=== PATIENT | female | born 1945 | race Caucasian/White ===

== ENCOUNTER 2017-04-13 12:50 | Emergency (ER) | payer MEDICARE, OTHER ==
[~2017-04-13 12:50] MED LIST: FLUTPOW4 XX; Z.0.NO CURRENT MEDS
[2017-04-13 12:52] VITALS: BP 179/76; PULSE 85; RESP 14; TEMP 98.2; O2SAT 98
--- NOTE | 2017-04-13 13:21 | PD ---
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 This patient has had a problem for about 2 weeks. She feels like something is falling out of place in her pelvic region. Nothing extrudes outside of the body. She tried to get an appointment with her physician [facility] advised her to come to the emergency room. Patient symptoms are mild. PFSH Past Medical History Heart Rhythm Problems: No Cardiac Catheterization: Yes (2007) Cardiovascular Problems: No High Cholesterol: No Congestive Heart Failure: No Diabetes: No Diminished Hearing: Yes (states tinnitus) Respiratory: Yes (seasonal allergies) Tetanus Vaccination: > 5 Years Influenza Vaccination: Yes ?: Not Menopausal: Yes : 2 Para: 2 Past Surgical History Cholecystectomy: Yes Coronary Artery Bypass Graft: No Family History Family Myocardial Infarction: Yes (MOTHER) Social History Alcohol Use: Yes Tobacco Use: No Substance Use: No Allergies-Medications (Allergen,Severity, Reaction): Coded Allergies: No Known Allergies (Verified Adverse Reaction, Unknown, 04/13/17) Reported Meds & Prescriptions Reported Meds & Active Scripts Active No Active Prescriptions or Reported Medications Review of Systems General / Constitutional: No: Fever HENT: No: Headaches Cardiovascular: No: Chest Pain or Discomfort Respiratory: No: Cough Physical Exam Narrative GASTROINTESTINAL: Abdomen soft, non-tender, nondistended. Positive bowel sounds. No hepato-splenomegaly, or palpable masses. No guarding. SKIN: Focused skin assessment reveals no rash or ulcers. Skin is warm and dry. Palpation shows no induration or nodules. Pelvic: This patient has a bladder prolapse. Does not exit the introitus. No bleeding or discharge. The bladder itself is visible and looks to have pink healthy tissue Data Data Last Documented VS Vital Signs Date Time Temp Pulse Resp B/P (MAP) Pulse Ox O2 Delivery O2 Flow Rate FiO2 04/13/17 12:52 98.2 85 14 179/76 (110) 98 MDM Medical Decision Making Medical Screen Exam Complete: Yes Emergency Medical Condition: Yes Medical Record Reviewed: Yes Differential Diagnosis Bladder prolapse, uterine prolapse, rectocele Narrative Course I have reviewed the patient's electronic medical record. This patient has bladder prolapse. I push it back into position as best I could. There is no emergency to this now. It's been dropping for 2 weeks now. She should follow-up with either urology or RFID MANAGER to discuss options including surgery, pessary, etc. Diagnosis Primary Impression: Bladder prolapse, female, acquired Additional Instructions: Follow-up with urology or RFID MANAGER to discuss options for her bladder prolapse Med/Other Pt SpecificInfo: Other Scripts No Active Prescriptions or Reported Meds Disposition: 01 DISCHARGE HOME Condition: Stable Marcos Funk MD Apr 13, 2017 13:21
[2017-04-13 13:50] VITALS: BP 140/77; TEMP 97.8
== END 2017-04-13 13:52 | disposition home or self-care (01) ==
LOC: NEPD 12:50
DX: N81.10 Cystocele, unspecified (principal)
CPT/HCPCS: 99284

== ENCOUNTER 2018-04-16 10:44 | Inpatient (IN) ==
[2018-04-16] MEDS ORDERED: Sod Chloride 0.9% Inj 1,000 ML IV.SIG ONE ×2 (11:21→13:18)
--- NOTE | 2018-04-16 11:36 | ED ---
HPI General Chief complaint: Weakness Stated complaint: weakness/dizziness/Cold and flu complaint Time Seen by Provider: 04/16/18 11:11 Source: patient, family and RN notes reviewed Mode of arrival: ambulatory History of Present Illness HPI narrative: 73yF presenting with generalized weakness and fatigue. The patient reports 1 week of generalized weakness, chills, myalgias, decreased appetite/ nausea, and fatigue. Admits to non-productive cough but denies fever, chest pain, vomiting, abdominal pain, constipation or diarrhea, or dysuria. No known recent sick contacts or travel. Related Data Home Medications Medication Instructions Recorded Confirmed oxybutynin chloride 5 mg PO BID 04/16/18 04/16/18 Allergies Allergy/AdvReac Type Severity Reaction Status Date / Time No Known Allergies Allergy Verified 04/16/18 10:55 Review of Systems ROS: all other systems reviewed are negative Constitutional Denies fever(s) Eyes Denies blurry vision ENT Denies nasal congestion Cardiovascular Denies chest pain Respiratory Reports cough Gastrointestinal Reports nausea Genitourinary Denies dysuria Musculoskeletal Denies back pain Neurologic Denies confusion Psychiatric Denies confusion [facility] Medical History Medical History Overactive bladder (Acute) Surgical History Surgical History History of cholecystectomy (Acute) Social History Social History Substance History: No History of Abuse Second Hand Smoke Exposure: No Smoking Status: Former smoker Tobacco Type: Cigarettes How Often Do You Have a Drink Containing Alcohol: 2 to 3 times a week Recent Travel in [facility] within the Last 8 Weeks: No Recent Out of Country Travel within the Last 8 Weeks: No Immunization History Tetanus Immunization: Unsure Exam Const General: healthy appearing and no acute distress HENMT Face and sinus: normal facial exam Eyes General: appearance normal, both eyes and all related structures Resp Effort & Inspection: normal respiratory effort Auscultation: no rhonchi and no wheezes Cardio Rate: regular rate Rhythm: regular rhythm GI Other: Soft, non-tender in all quadrants, no guarding or rebound Skin General: no rashes or lesions noted Neuro General: alert, awake, oriented x3 and no focal motor deficits Extrem Other: No lower extremity edema Psych Affect: normal affect Course Initial Documented Vital Signs Temperature 100.6 F H 04/16/18 10:53 Pulse Rate 106 H 04/16/18 10:53 Respiratory Rate 18 04/16/18 10:53 Blood Pressure 141/65 H 04/16/18 10:53 Pulse Oximetry 94 L 04/16/18 10:53 Last Documented Vital Signs Temperature 99.2 F 04/16/18 13:15 Pulse Rate 99 H 04/16/18 10:55 Respiratory Rate 18 04/16/18 10:55 Blood Pressure 137/60 04/16/18 10:55 Pulse Oximetry 98 04/16/18 10:55 Medical Decision Making MDM Narrative Medical decision making narrative: Assessment: 73yF presenting with generalized weakness/ fatigue, cough, chills Plan: EKG Labs CXR UA Flu swab Addendum: Patient found to have RML/ RLL community-acquired pneumonia and SIRS. Her pulse ox is in the low 90s on room air. She requires IV antibiotics, aggressive pulmonary toilet, and re-evaluation at frequent intervals. She and her understand and agree with plan. Case discussed with Dr. Osman of [facility]. Medical Screen Exam Complete: Yes Emergency Medical Condition: Yes Differential Diagnosis Differential Diagnosis: Differential diagnosis includes, but is not limited to: influenza, pneumonia, UTI, electrolyte abnormality, thyroid disease, dehydration , low suspicion for ACS Lab Data Lab results reviewed: Yes I reviewed the patient's lab results. Result diagrams: 04/16/18 12:00 04/16/18 12:00 Lab Results 04/16/18 04/16/18 04/16/18 Range/Units 12:00 12:00 12:00 WBC 12.8 H (4.0-11.0) th/mm3 RBC 4.05 (4.00-5.30) mil/mm3 Hgb 11.4 L (11.6-15.3) gm/dL Hct 33.8 L (35.0-46.0) % MCV 83.4 (80.0-100.0) fL MCH 28.1 (27.0-34.0) pg MCHC 33.6 (32.0-36.0) % RDW 14.7 (11.6-17.2) % Plt Count 162 (150-450) th/mm3 MPV 9.0 (7.0-11.0) fL Neut % (Auto) 82.6 H (16.0-70.0) % Lymph % (Auto) 7.3 L (9.0-44.0) % [place] % (Auto) 9.6 H (0.0-8.0) % Eos % (Auto) 0.1 (0.0-4.0) % Baso % (Auto) 0.4 (0.0-2.0) % Neut # (Auto) 10.6 H (1.8-7.7) th/mm3 Lymph # (Auto) 0.9 L (1.0-4.8) th/mm3 [place]ee # (Auto) 1.2 H (0.0-0.9) th/mm3 Eos # (Auto) 0.0 (0.0-0.4) th/mm3 Baso # (Auto) 0.1 (0.0-0.2) th/mm3 WBC Differential . Differential Comment Auto diff final Sodium 131 L (136-145) meq/L Potassium 3.9 (3.5-5.1) meq/L Chloride 96 L (98-107) meq/L Carbon Dioxide 23.6 (21.0-32.0) meq/L Anion Gap 11 (5-15) meq/L BUN 10 (7-18) mg/dL Creatinine 0.72 (0.50-1.00) mg/dL Estimated GFR 80 L (>89) mL/min Random Glucose 111 H (74-106) mg/dL Calcium 8.3 L (8.5-10.1) mg/dL Magnesium 2.1 (1.5-2.5) mg/dL Total Bilirubin 0.6 (0.2-1.0) mg/dL AST 110 H (15-37) U/L ALT 99 H (10-53) U/L Alkaline Phosphatase 64 (45-117) U/L Troponin I Less than 0.02 L (0.02-0.05) ng/mL Total Protein 6.9 (6.4-8.2) g/dL Albumin 2.4 L (3.4-5.0) g/dL TSH 0.821 (0.358-3.740) uIU/mL Urine Color (Yellw/Straw) Urine Clarity (Clear) Urine pH (5.0-8.5) Ur Specific [place] (1.002-1.035) Urine Protein (Neg-Trace) mg/dL Urine Glucose (UA) (Negative) mg/dL Urine Ketones (Negative) mg/dL Urine Occult Blood (Negative) Urine Nitrate (Negative) Urine Bilirubin (Negative) Urine Urobilinogen (Less than 2) mg/dL Ur Leukocyte Esterase (Negative) Urine RBC (0-3) /hpf Urine WBC (0-5) /hpf Urine WBC Clumps (None) Ur Squamous Epith Cells (0-5) /hpf Urine Bacteria (None) /hpf Hyaline Casts (0-3) /lpf Granular Casts (None) /lpf WBC Casts (None) /lpf Micro UA Comment Ur Microscopic Review Urine Culture Comments 04/16/18 Range/Units 12:48 WBC (4.0-11.0) th/mm3 RBC (4.00-5.30) mil/mm3 Hgb (11.6-15.3) gm/dL Hct (35.0-46.0) % MCV (80.0-100.0) fL MCH (27.0-34.0) pg MCHC (32.0-36.0) % RDW (11.6-17.2) % Plt Count (150-450) th/mm3 MPV (7.0-11.0) fL Neut % (Auto) (16.0-70.0) % Lymph % (Auto) (9.0-44.0) % [place]ee % (Auto) (0.0-8.0) % Eos % (Auto) (0.0-4.0) % Baso % (Auto) (0.0-2.0) % Neut # (Auto) (1.8-7.7) th/mm3 Lymph # (Auto) (1.0-4.8) th/mm3 [place]ee # (Auto) (0.0-0.9) th/mm3 Eos # (Auto) (0.0-0.4) th/mm3 Baso # (Auto) (0.0-0.2) th/mm3 WBC Differential Differential Comment Sodium (136-145) meq/L Potassium (3.5-5.1) meq/L Chloride (98-107) meq/L Carbon Dioxide (21.0-32.0) meq/L Anion Gap (5-15) meq/L BUN (7-18) mg/dL Creatinine (0.50-1.00) mg/dL Estimated GFR (>89) mL/min Random Glucose (74-106) mg/dL Calcium (8.5-10.1) mg/dL Magnesium (1.5-2.5) mg/dL Total Bilirubin (0.2-1.0) mg/dL AST (15-37) U/L ALT (10-53) U/L Alkaline Phosphatase (45-117) U/L Troponin I (0.02-0.05) ng/mL Total Protein (6.4-8.2) g/dL Albumin (3.4-5.0) g/dL TSH (0.358-3.740) uIU/mL Urine Color Diane (Yellw/Straw) Urine Clarity Hazy H (Clear) Urine pH 5.0 (5.0-8.5) Ur Specific [place] 1.018 (1.002-1.035) Urine Protein 100 H (Neg-Trace) mg/dL Urine Glucose (UA) Negative (Negative) mg/dL Urine Ketones Negative (Negative) mg/dL Urine Occult Blood Negative (Negative) Urine Nitrate Negative (Negative) Urine Bilirubin Negative (Negative) Urine Urobilinogen 2.0 H (Less than 2) mg/dL Ur Leukocyte Esterase Negative (Negative) Urine RBC 2 (0-3) /hpf Urine WBC 5 (0-5) /hpf Urine WBC Clumps Rare H (None) Ur Squamous Epith Cells <1 (0-5) /hpf Urine Bacteria Rare H (None) /hpf Hyaline Casts 8 (0-3) /lpf Granular Casts 4 (None) /lpf WBC Casts 1 (None) /lpf Micro UA Comment Culture indicated Ur Microscopic Review Microscopic reviewed Urine Culture Comments Culture indicated Imaging Data Radiologist's impression: Chest X-Ray 04/16/18 11:21 CONCLUSION: Acute right lung airspace disease characteristic of pneumonitis. ECG Data Attestation: I personally reviewed and interpreted this ECG as follows: Interpretation: Rate: 85 BPM Rhythm: Sinus [place]: Left Intervals: Normal intervals, no blocks, QTc 395 ms Q waves: None T waves: Upright, no inversions ST segments: No elevations or depressions Impression: Non-specific EKG, no changes as compared to EKG from 07/18/2012. Discharge Plan Discharge Order Discharge Orders: ED Use Only Admit Order (Routine); Ordered 04/16/18 Ordered By: Duyen Phelps Physicians Team ED Provider: Duyen Phelps Primary Care Provider: Basil Villela Rxs /Orders / Referrals /Forms Prescriptions: No Action oxybutynin chloride 5 mg Tablet Extended Release 24hr 5 mg PO BID RF: 0 Discharge Interventions Interventions: Vital Signs Last Done: 04/16/18 13:15 Status ED Status: Admitted Patient
[2018-04-16] MEDS ORDERED: Acetaminophen 325 MG Tablet PO ONE (11:47)
--- NOTE | 2018-04-16 12:07 | XR ---
EXAM DATE: 04/16/2018 11:57 AM EST AGE/SEX: 73 years / Female INDICATIONS: . Cough. CLINICAL DATA: This is the patient's initial encounter. Patient reports that signs and symptoms have been present for 3 days and indicates a pain score of 0/10. MEDICAL/SURGICAL HISTORY: None. Cholecystectomy. COMPARISON: [facility] – [place], CHEST SINGLE AP, 07/18/2012. . FINDINGS: Significant airspace disease is identified in the right midlung and base. Lungs are hyperinflated. Heart and mediastinal structures are stable. CONCLUSION: Acute right lung airspace disease characteristic of pneumonitis. Electronically signed by: Marco Mckeon MD Board Certified Radiologist 04/16/2018 12:06 PM EST
[2018-04-16 12:20] LABS: Baso # (Auto) 0.1 th/mm3 (0.0-0.2); Baso % (Auto) 0.4 % (0.0-2.0); Eos % (Auto) 0.1 % (0.0-4.0); Hematocrit 33.8 % (35.0-46.0); Hemoglobin 11.4 gm/dL (11.6-15.3); Lymph # (Auto) 0.9 th/mm3 (1.0-4.8); Lymph % (Auto) 7.3 % (9.0-44.0); Mean Corpuscular HGB Conc 33.6 % (32.0-36.0); Mean Corpuscular Hemoglobin 28.1 pg (27.0-34.0); Mean Corpuscular Volume 83.4 fL (80.0-100.0); Mono # (Auto) 1.2 th/mm3 (0.0-0.9); Mono % (Auto) 9.6 % (0.0-8.0); Neut # (Auto) 10.6 th/mm3 (1.8-7.7); Neut % (Auto) 82.6 % (16.0-70.0); Platelet Count 162 th/mm3 (150-450); Red Blood Count 4.05 mil/mm3 (4.00-5.30); Red Cell Distribution Width 14.7 % (11.6-17.2); White Blood Count 12.8 th/mm3 (4.0-11.0)
[2018-04-16] MEDS ORDERED: Azithromycin Inj 500 MG in Sodium Chlor 0.9% Inj 250 ML IV.SIG ONE (12:32)
[2018-04-16 12:39] LABS: Alanine Aminotransferase 99 U/L (10-53)
[2018-04-16 12:43] LABS: Alkaline Phosphatase 64 U/L (45-117); Total Protein 6.9 g/dL (6.4-8.2)
[2018-04-16 12:47] LABS: Albumin 2.4 g/dL (3.4-5.0); Anion Gap 11 meq/L (5-15); Aspartate Aminotransferase 110 U/L (15-37); Blood Urea Nitrogen 10 mg/dL (7-18); Calcium 8.3 mg/dL (8.5-10.1); Carbon Dioxide 23.6 meq/L (21.0-32.0); Chloride 96 meq/L (98-107); Glomerular Filtration Rate 80 mL/min (>89); Glucose,Random 111 mg/dL (74-106); Magnesium 2.1 mg/dL (1.5-2.5); Sodium 131 meq/L (136-145)
[2018-04-16 12:54] LABS: Potassium 3.9 meq/L (3.5-5.1)
[2018-04-16 13:07] LABS: Bacteria,Urine Rare /hpf; Bilirubin,Urine Negative (Negative); Clarity,Urine Hazy (Clear); Color,Urine Amber (Yellw/Straw); Glucose,Urine (UA) Negative (Negative); Hyaline Casts,Urine 8 /lpf (0-3); Leukocyte Esterase,Urine Negative (Negative); Nitrite,Urine Negative (Negative); Specific Gravity,Urine 1.018 (1.002-1.035); Squamous Epithelial Cell,Urine <1 /hpf (0-5)
--- NOTE | 2018-04-16 15:30 | P.HPIM ---
History of Present Illness Primary Care Physician: Basil Villela MD History of Present Illness: Pt is 73 yo with overactive bladder who presented with increasing weakness, confusion, fever/chills and just starting with nonproductive cough. Her is at bedside. No sick family contacts. no sinus congestion or sore throat. Pt says for "years" she has had some difficulty swallowing but not any worse now. She completely denies any possibility of aspiration. She and are vague about tobacco use but she quit back in . She is getting ivf, rocephin and azithro her in ED. PMH overactive bladder. lap jannie FH: [place] SH quit tob in etoh 2-3x per week reported. Diagnosis (1) Community acquired pneumonia: Inpatient Certification Inpatient Certification: I certify that the inpatient services were ordered in accordance with Medicare regulations governing the order. This includes certification that hospital inpatient services are reasonable and necessary and in the case of services not specified as inpatient-only under 42 CFR 419.22(n), that they are appropriately provided as inpatient services in accordance to with the 2-midnight benchmark under 43 CFR 412.3(e) Medications and Allergies Allergies Allergy/AdvReac Type Severity Reaction Status Date / Time No Known Allergies Allergy Verified 04/16/18 10:55 Home Medications Medication Instructions Recorded Confirmed Type oxybutynin chloride 5 mg PO BID 04/16/18 04/16/18 History Active Medications: Active Medications Sodium Chloride (Ns Flush) 2 ml IV.FLUSH PRN PRN PRN Reason: FLUSH AFTER USING IV ACCESS Physical Exam Vital signs: Last Vital Signs Temp 99.2 F 04/16/18 13:15 Pulse 73 04/16/18 15:00 Resp 16 04/16/18 15:00 BP 112/53 L 04/16/18 15:00 Pulse Ox 96 04/16/18 15:00 Narrative: mild confusion but cooperative nad. no labored breathing heart reg lung crackles right base. no egophany no wheezing ext no edema Results Labs CBC & Chem 7: 04/16/18 12:00 04/16/18 12:00 Caprini VTE Risk Assessment Caprini VTE Risk Assessment: Moderate/High Risk (score >= 2) Caprini Risk Assessment Model: Point Value = 1 Point Value = 2 Point Value = 3 Point Value = 5 Age 41-60 Minor surgery BMI > 25 kg/m2 Swollen legs Varicose veins or History of unexplained or recurrent spontaneous Oral contraceptives or hormone replacement Sepsis (< 1 month) Serious lung disease, including pneumonia (< 1 month) Abnormal pulmonary function Acute myocardial infarction Congestive heart failure (< 1 month) History of inflammatory bowel disease Medical patient at bed rest Age 61-74 Arthroscopic surgery Major open surgery (> 45 min) Laparoscopic surgery (> 45 min) Malignancy Confined to bed (> 72 hours) Immobilizing plaster cast Central venous access Age >= 75 History of VTE Family history of VTE Factor V Leiden Prothrombin [id number] Lupus anticoagulant Anticardiolipin antibodies Elevated serum homocysteine Heparin-induced thrombocytopenia Other congenital or acquired thrombophilia Stroke (< 1 month) Elective arthroplasty Hip, pelvis, or leg fracture Acute spinal cord injury (< 1 month) Prophylaxis Regimen: Total Risk Factor Score Risk Level Prophylaxis Regimen 0-1 Low Early ambulation 2 Moderate Order ONE of the following: *Sequential Compression Device (SCD) *Heparin 5000 units SQ BID 3-4 Higher Order ONE of the following medications: *Heparin 5000 units SQ TID *Enoxaparin/Lovenox 40 mg SQ daily (WT < 150 kg, CrCl > 30 mL/min) *Enoxaparin/Lovenox 30 mg SQ daily (WT < 150 kg, CrCl > 10-29 mL/min) *Enoxaparin/Lovenox 30 mg SQ BID (WT < 150 kg, CrCl > 30 mL/min) AND/OR *Sequential Compression Device (SCD) 5 or more Highest Order ONE of the following medications: *Heparin 5000 units SQ TID (Preferred with Epidurals) *Enoxaparin/Lovenox 40 mg SQ daily (WT < 150 kg, CrCl > 30 mL/min) *Enoxaparin/Lovenox 30 mg SQ daily (WT < 150 kg, CrCl > 10-29 mL/min) *Enoxaparin/Lovenox 30 mg SQ BID (WT < 150 kg, CrCl > 30 mL/min) AND *Sequential Compression Device (SCD) Assessment and Plan Assessment (1) Community acquired pneumonia: Code(s): J18.9 - Pneumonia, unspecified organism Status: Acute Plan 1. CAP right middle/lower lung mild related delirium pt denies any aspiration events 2. dehydration and hyponatremia related to acute infection updated pt and at [facility]. reviewed cxr with them abx with rocephin and azithro started cont NS mucinex PT eval dvt prohphylaxis urine legionella/pneumococcal antigen further w/up if not responding...otherwise will need f/u pcp and repeat cxr.
[2018-04-16] MEDS ORDERED: Bisacodyl 10 MG Supp RECTAL PRN (15:36)
[2018-04-16] MEDS ORDERED: Temazepam 15 MG Capsule PO PRN (15:36)
[2018-04-16] MEDS ORDERED: Acetaminophen 325 MG Tablet PO PRN (15:36)
[2018-04-16] MEDS: Sod Chloride 0.9% Inj 1,000 ML IV.CONT SCH ×2 (17:27→23:36)
[2018-04-16] MEDS: guaiFENesin 600 MG ER Tablet PO SCH ×2 (17:27→20:54)
--- NOTE | 2018-04-16 17:37 | ECG ---
Date Performed: 04/16/2018 Time Performed: 12:52:23 PTAGE: 73 years EKG: Sinus rhythm MARKED LEFT AXIS DEVIATION ABNORMAL ECG PREVIOUS TRACING : 07/18/2012 16.46 Since the previous tracing, no significant change noted DOCTOR: Sreekanth Mckeon Interpretating Date/Time 04/16/2018 17:37:10
[2018-04-17] MEDS: Sod Chloride 0.9% Inj 1,000 ML IV.CONT SCH (01:44)
[2018-04-17 07:47] LABS: Baso % (Auto) 0.5 % (0.0-2.0); Eos # (Auto) 0.1 th/mm3 (0.0-0.4); Eos % (Auto) 1.1 % (0.0-4.0); Hematocrit 29.3 % (35.0-46.0); Hemoglobin 9.8 gm/dL (11.6-15.3); Lymph # (Auto) 1.4 th/mm3 (1.0-4.8); Lymph % (Auto) 15.4 % (9.0-44.0); Mean Corpuscular HGB Conc 33.5 % (32.0-36.0); Mean Corpuscular Hemoglobin 27.8 pg (27.0-34.0); Mean Platelet Volume 9.3 fL (7.0-11.0); Mono # (Auto) 0.9 th/mm3 (0.0-0.9); Mono % (Auto) 10.2 % (0.0-8.0); Neut # (Auto) 6.4 th/mm3 (1.8-7.7); Neut % (Auto) 72.8 % (16.0-70.0); Platelet Count 157 th/mm3 (150-450); Red Blood Count 3.53 mil/mm3 (4.00-5.30); Red Cell Distribution Width 14.7 % (11.6-17.2); White Blood Count 8.8 th/mm3 (4.0-11.0)
[2018-04-17 08:22] LABS: Alanine Aminotransferase 81 U/L (10-53); Albumin 1.8 g/dL (3.4-5.0); Alkaline Phosphatase 57 U/L (45-117); Anion Gap 9 meq/L (5-15); Aspartate Aminotransferase 67 U/L (15-37); Blood Urea Nitrogen 7 mg/dL (7-18); Calcium 7.2 mg/dL (8.5-10.1); Carbon Dioxide 23.9 meq/L (21.0-32.0); Chloride 109 meq/L (98-107); Glomerular Filtration Rate Greater Than 89 mL/min (>89); Glucose,Random 95 mg/dL (74-106); Potassium 3.5 meq/L (3.5-5.1); Sodium 142 meq/L (136-145); Total Protein 5.4 g/dL (6.4-8.2)
[2018-04-17] MEDS: guaiFENesin 600 MG ER Tablet PO SCH ×2 (08:44→20:36)
--- NOTE | 2018-04-17 09:33 | P.PNIM ---
Subjective Interval history: Pt reports that she did not sleep well last night but feels that she is somewhat better today She feels that the mucous is becoming more mobile but she is unable to bring it up yet. Physical Exam Vital signs: Last Vital Signs Temp 98.8 F 04/17/18 08:00 Pulse 76 04/17/18 08:00 Resp 16 04/17/18 08:00 BP 134/63 04/17/18 08:00 Pulse Ox 95 04/17/18 08:00 Narrative: General: NAD, Awake and alert Chest: Crackles at the right base Cardiac: Regular Ext: No edema Results Labs CBC & Chem 7: 04/17/18 06:22 04/17/18 06:22 Imaging Chest X-Ray 04/16/18 11:21 CONCLUSION: Acute right lung airspace disease characteristic of pneumonitis. Assessment and Plan Assessment (1) Community acquired pneumonia: Code(s): J18.9 - Pneumonia, unspecified organism Status: Acute Plan CAP right middle/lower lung, pt denies any aspiration events Mild related delirium, improving - Cont. abx with Rocephin and Azithromycin - Mucinex BID - urine legionella/pneumococcal antigen are negative. - PT eval - DVt prophylaxis - further w/up if not responding...otherwise will need f/u pcp and repeat cxr. Dehydration and hyponatremia related to acute infection - Improving with IVF Attending Attestation Patient examined. Assessment and plan formulated with Rebecca Louis PA-C. I agree with the above. right lung CAP. cont iv abx check to to exclude underlying mass. doubt will need f/u cxr per pcp. plan for dc tomorrow. dc ivf. Progress Note: Quality VTE Deep Vein Thrombosis/Pulmonary Embolism Present on Admission: No
--- NOTE | 2018-04-17 11:53 | CT ---
EXAM DATE: 04/17/2018 11:49 AM EST AGE/SEX: 73 years / Female INDICATIONS: Shortness of breath. CLINICAL DATA: This is the patient's initial encounter. Patient reports that signs and symptoms have been present for 1 day and indicates a pain score of 0/10. MEDICAL/SURGICAL HISTORY: . pneumonia Cholecystectomy. RADIATION DOSE: 8.0 CTDI (mGy) COMPARISON: No prior exams available for comparison. TECHNIQUE: Multiple contiguous axial images were obtained through the chest without contrast. Image s were obtained in suspended respiration using multiple row detector helical technique. Using automa ruddy exposure control and adjustment of the mA and/or kV according to patient size, radiation dose was kept as low as reasonably achievable to obtain optimal diagnostic quality images. DICOM format imag e data is available electronically for review and comparison. FINDINGS: Lungs: Extensive consolidating airspace disease is present throughout the right lower lobe. Right joey ng is clear. Mediastinum: There is good visualization of the great vessels of the middle mediastinum. No evidenc e of mediastinal or hilar adenopathy/mass. Pleurae: Small bilateral effusions are identified. Axillae: Unremarkable. Bony Structures: Unremarkable. Miscellaneous: The examination was extended to include the upper abdomen, and both adrenal glands ar e normal in size and configuration. CONCLUSION: 1. Extensive right lower lobe consolidating airspace disease with small parapneumonic effusion. 2. Small left pleural effusion. 3. No other significant abnormality. Electronically signed by: Marco Mckeon MD Board Certified Radiologist 04/17/2018 11:51 AM EST
[2018-04-17] MEDS ORDERED: Azithromycin Inj 500 MG in Sodium Chlor 0.9% Inj 250 ML IV.SIG SCH (12:00)
[2018-04-18] MEDS: guaiFENesin 600 MG ER Tablet PO SCH (08:35)
--- NOTE | 2018-04-18 08:41 | P.PNIM ---
Subjective Interval history: Pt reports that she is feeling better today overall. She feels less weak and is ambulating the halls without difficulty Her cough is starting to mobilize more and she is trying to bring up some phlegm. Afebrile. Physical Exam Vital signs: Last Vital Signs Temp 97.4 F L 04/18/18 08:00 Pulse 67 04/18/18 08:00 Resp 17 04/18/18 08:00 BP 131/63 04/18/18 08:00 Pulse Ox 93 L 04/18/18 08:00 Narrative: General: NAD, Awake and alert Chest: Crackles at the right base Cardiac: Regular Ext: No edema Results Labs CBC & Chem 7: 04/17/18 06:22 04/17/18 06:22 Assessment and Plan Assessment (1) Community acquired pneumonia: Code(s): J18.9 - Pneumonia, unspecified organism Status: Acute Plan CAP right middle/lower lung, pt denies any aspiration events Mild related delirium, improving - Cont. abx with Rocephin and Azithromycin - Mucinex BID - urine legionella/pneumococcal antigen are negative. - PT eval - DVt prophylaxis - further w/up if not responding...otherwise will need f/u pcp and repeat cxr. Dehydration and hyponatremia related to acute infection - Improving with IVF Progress Note: Quality VTE Deep Vein Thrombosis/Pulmonary Embolism Present on Admission: No
== END 2018-04-18 10:52 | disposition home or self-care (01) | DRG 194 ==
LOC: NEPC 10:44 → NEDA 13:32 → N07 16:04
PROVIDERS: ADMIT Hospitalist; ATTEND Hospitalist
CPT/HCPCS: 71020; 71046; 71250; 80048; 80053; 80076; 81001; 82040; 83605; 83735; 84443; 84484; 85025; 86403; 87040; 87077; 87086; 87186; 87205; 87275; 87276; 87449; 87804; 90760; 93005; 96360; 97161; 99285; J0456; J0696; J7030; J7050; P9612